=== PATIENT | male | born 1965 | race Caucasian/White ===

== ENCOUNTER 2018-07-18 09:56 | Day surgery (SDC) | payer OTHER ==
[~2018-07-18] VITALS: Ht 188 cm; Wt 122.5 kg
[~2018-07-18 09:56] MED LIST: AMLO10TA4 PO; OMEP20TC9 PO
[2018-07-18] MEDS ORDERED: KETOROLAC 30 MG/ML VIAL ONE (12:09)
[2018-07-18] MEDS ORDERED: LIDOCAINE 2% 100 MG/5 ML UJET TP ONE (12:09)
== END 2018-07-18 13:05 | disposition home or self-care (01) ==
LOC: MMU 09:56 → MDS 09:56
PROVIDERS: ATTEND Internal Medicine Gastroenterology
DX: R10.31 Right lower quadrant pain (principal); E66.01 Morbid (severe) obesity due to excess calories; I10 Essential (primary) hypertension; E78.5 Hyperlipidemia, unspecified; Z68.44 Body mass index [BMI] 60.0-69.9, adult; Z68.41 Body mass index [BMI] 40.0-44.9, adult
CPT/HCPCS: 45378; J1885